=== PATIENT | male | born 1985 | race Hispanic/Latino ===

== ENCOUNTER 2018-05-19 16:15 | Inpatient (IN) | payer OTHER ==
[~2018-05-19] VITALS: Ht 167.6 cm; Wt 260.4 kg
[~2018-05-19 16:15] MED LIST: ENAL20TA PO; FURO20TA6 PO; LEVO500T2 PO; METF-444 PO
[2018-05-19 17:19] LABS: BASOPHILS % (AUTO) 0.8 % (0.0-5.0); HEMATOCRIT 48.9 % (42-54); MEAN CORPUSCULAR HEMOGLOBIN 24.8 pg (27.0-33.0); MEAN CORPUSCULAR HGB CONC 30.2 g/dL (32.0-36.0); MONOCYTES % (AUTO) 10.9 % (3.0-13.0); NEUTROPHILS % (AUTO) 76.3 % (40.0-77.0); NUCLEATED RED BLOOD CELLS 2.4 % (0.0-0.19); PLATELET COUNT (AUTO) 138 K/uL (130-400); RED BLOOD CELL COUNT(AUTO) 5.96 MIL/uL (4.50-6.20); RED CELL DISTRIBUTION WIDTH 20.5 % (11.0-15.5); WHITE BLOOD COUNT (AUTO) 7.4 K/uL (4.8-10.8)
[2018-05-19] MEDS ORDERED: MAG HYDROX/AL HYDROX/SIMETH ES 30 ML SUSP UDCUP ONE (17:20)
[2018-05-19 17:34] LABS: ALBUMIN 2.5 g/dL (3.5-5.0); BILIRUBIN,TOTAL 1.3 mg/dL (0.2-1.0); CREATININE 1.5 mg/dL (0.5-1.5); TOTAL PROTEIN, SERUM 7.2 g/dL (6.0-8.3)
[2018-05-19 17:36] LABS: POTASSIUM 6.2 mmol/L (3.5-5.1)
[2018-05-19] MEDS ORDERED: SODIUM CHLORIDE 0.9% 1000ML 1,000 ML IV ONE (18:01)
[2018-05-19] MEDS ORDERED: DEXTROSE 50%-WATER 50 ML DISP.SYRIN IV ONE (18:37)
[2018-05-19] MEDS ORDERED: INSULIN HUMULIN R 100 UNIT/ML 3ML ONE (18:38)
[2018-05-19] MEDS ORDERED: SODIUM POLYSTYRENE SULFONATE 15 GM/60 ML ML ONE (18:40)
[2018-05-19 19:45] LABS: APPEARANCE,URINE Clear (CLEAR); BILIRUBIN,URINE Negative (NEGATIVE); COLOR,URINE Yellow (YELLOW); GLUCOSE, URINE (UA) Negative (NEGATIVE); KETONES,URINE Negative (NEGATIVE); LEUKOCYTE ESTERASE ,URINE Negative (NEGATIVE); NITRATE,URINE Negative (NEGATIVE); OCCULT BLOOD,URINE Negative (NEGATIVE); PROTEIN,URINE Negative (NEGATIVE); UROBILINOGEN,URINE 0.2 mg/dL (0.2-1.0)
[2018-05-19 20:42] LABS: HEMOGLOBIN A1C 7.2 % (4.0-6.0)
[2018-05-19] MEDS: INSULIN HUMULIN R 100 UNIT/ML 3ML SQ SCH (21:00)
[2018-05-19 21:13] LABS: CHOLESTEROL 104 mg/dL (<200); HDL CHOLESTEROL 29 mg/dL (29-71); LDL DIRECT 66 mg/dL (0-99); TRIGLYCERIDES 66 mg/dL (30-200)
[2018-05-19 22:15] VITALS: BP 130/78
[2018-05-19] MEDS: IPRATROPIUM/ALBUTEROL SULFATE 3 ML SOLUTION IH PRN (22:24)
[2018-05-19] MEDS: FUROSEMIDE 10 MG/ML 2ML VIAL IV SCH (22:45)
[2018-05-20] VITALS (7 sets, daily range): BP systolic 97–135; BP diastolic 57–75
[2018-05-20 05:44] LABS: BASOPHILS % (AUTO) 0.6 % (0.0-5.0); HEMATOCRIT 49.1 % (42-54); LYMPHOCYTES % (AUTO) 12.1 % (21.0-51.0); MEAN CORPUSCULAR HEMOGLOBIN 24.2 pg (27.0-33.0); MEAN CORPUSCULAR HGB CONC 29.3 g/dL (32.0-36.0); MEAN CORPUSCULAR VOLUME 82.7 fL (79-99); MONOCYTES % (AUTO) 13.1 % (3.0-13.0); NEUTROPHILS % (AUTO) 72.2 % (40.0-77.0); NUCLEATED RED BLOOD CELLS 1.1 % (0.0-0.19); PLATELET COUNT (AUTO) 132 K/uL (130-400); RED BLOOD CELL COUNT(AUTO) 5.93 MIL/uL (4.50-6.20); RED CELL DISTRIBUTION WIDTH 20.7 % (11.0-15.5)
[2018-05-20 05:54] LABS: CREATININE 1.6 mg/dL (0.5-1.5); POTASSIUM 5.6 mmol/L (3.5-5.1)
[2018-05-20] MEDS ORDERED: LISI1TAB9 PO (06:33)
[2018-05-20] MEDS ORDERED: METF500S7 PO (06:33)
[2018-05-20] MEDS: INSULIN HUMULIN R 100 UNIT/ML 3ML SQ SCH ×4 (06:34→21:00)
[2018-05-20] MEDS: IPRATROPIUM/ALBUTEROL SULFATE 3 ML SOLUTION IH PRN (07:09)
[2018-05-20] MEDS: FUROSEMIDE 10 MG/ML 2ML VIAL IV SCH ×3 (08:29→21:39)
[2018-05-20] MEDS: PANTOPRAZOLE SODIUM 40 MG TABLET.DR PO SCH (08:31)
[2018-05-20] MEDS: ENOXAPARIN SODIUM 40 MG/0.4 ML SYRINGE SQ SCH (08:32)
[2018-05-21] MEDS: IPRATROPIUM/ALBUTEROL SULFATE 3 ML SOLUTION IH PRN (02:29)
[2018-05-21 03:00] VITALS: BP 129/72
[2018-05-21] MEDS: FUROSEMIDE 10 MG/ML 2ML VIAL IV SCH ×2 (03:52→12:53)
[2018-05-21 05:53] LABS: CREATININE 1.2 mg/dL (0.5-1.5); POTASSIUM 4.4 mmol/L (3.5-5.1)
[2018-05-21] MEDS: INSULIN HUMULIN R 100 UNIT/ML 3ML SQ SCH ×2 (06:07→11:30)
[2018-05-21 08:00] VITALS: BP 118/72
[2018-05-21] MEDS: PANTOPRAZOLE SODIUM 40 MG TABLET.DR PO SCH (08:33)
[2018-05-21] MEDS: ENOXAPARIN SODIUM 40 MG/0.4 ML SYRINGE SQ SCH (08:35)
[2018-05-21] MEDS ORDERED: BUPROPION HCL 150 MG TABLET.SA PO SCH (09:00)
[2018-05-21 12:00] VITALS: BP 127/64
[2018-05-21] MEDS ORDERED: ACETAMINOPHEN 325 MG TAB PO ONE (15:00)
[2018-05-21] MEDS ORDERED: LEVOFLOXACIN 500 MG TABLET PO SCH (15:00)
[2018-05-21] MEDS ORDERED: METF500S7 PO (15:05)
[2018-05-21] MEDS ORDERED: ACET-66 PO (15:05)
[2018-05-21] MEDS ORDERED: LEVO500T89 PO (15:05)
[2018-05-21] MEDS ORDERED: METF-805 PO ×2 (15:16→15:17)
[2018-05-21 16:00] VITALS: BP 127/73
== END 2018-05-21 18:50 | disposition home or self-care (01) | DRG 729 ==
LOC: EDH 16:15 → EDHIP 16:16 → 3CH 21:00
PROVIDERS: ADMIT Internal Medicine; ATTEND Internal Medicine
PROC: 5A09357 Assistance with Respiratory Ventilation, Less than 24 Consecutive Hours, Continuous Positive Airway Pressure (ICD-10-PCS; principal; 2018-05-21)
DX: N43.3 Hydrocele, unspecified (principal); Z68.44 Body mass index [BMI] 60.0-69.9, adult; L03.116 Cellulitis of left lower limb; L03.115 Cellulitis of right lower limb; N49.2 Inflammatory disorders of scrotum; E87.5 Hyperkalemia; G47.30 Sleep apnea, unspecified; E66.01 Morbid (severe) obesity due to excess calories; I50.9 Heart failure, unspecified; I11.0 Hypertensive heart disease with heart failure; F32.9 Major depressive disorder, single episode, unspecified; E11.65 Type 2 diabetes mellitus with hyperglycemia; N50.89 Other specified disorders of the male genital organs; Z99.81 Dependence on supplemental oxygen
CPT/HCPCS: 36415; 71045; 71046; 76870; 80048; 80053; 80061; 81003; 82948; 83036; 83690; 83880; 84132; 85025; 86677; 93005; 94640; 94660; 94664; G0378; J1650; J1815; J1940; J7030; J7070

== ENCOUNTER 2018-05-30 21:05 | Emergency (ER) | payer OTHER ==
[~2018-05-30 21:05] MED LIST changes: +ACET-66 PO; -ENAL20TA PO; -FURO20TA6 PO; -LEVO500T2 PO; +LEVO500T89 PO; -METF-444 PO; +METF-805 PO
[2018-05-30] MEDS ORDERED: KETOROLAC TROMETHAMINE 30MG/ML ONE (22:43)
== END 2018-05-31 01:50 | disposition home or self-care (01) ==
LOC: EDH 21:05
DX: N49.2 Inflammatory disorders of scrotum (principal); E66.01 Morbid (severe) obesity due to excess calories; E11.9 Type 2 diabetes mellitus without complications; E78.5 Hyperlipidemia, unspecified; I10 Essential (primary) hypertension; Z68.45 Body mass index [BMI] 70 or greater, adult
CPT/HCPCS: 76870; 87210; 96372; 99284; J1885